=== PATIENT | male | born 1990 ===

== ENCOUNTER 2020-12-30 11:53 | Emergency (ER) | payer SELFPAY ==
[2020-12-30 12:27] VITALS: BP 123/75
[2020-12-30] MEDS ORDERED: IBUPROFEN 800 MG TAB PO ONE (12:42)
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
== END 2020-12-30 14:14 | disposition home or self-care (01) ==
LOC: ED 11:53
DX: S69.91XA Unspecified injury of right wrist, hand and finger(s), initial encounter (principal); S39.92XA Unspecified injury of lower back, initial encounter; Z88.0 Allergy status to penicillin; V89.2XXA Person injured in unspecified motor-vehicle accident, traffic, initial encounter; Y93.89 Activity, other specified; Y92.89 Other specified places as the place of occurrence of the external cause; Y99.8 Other external cause status
CPT/HCPCS: 72070; 72100; 99283

== ENCOUNTER 2021-06-25 13:44 | Emergency (ER) | payer SELFPAY | END 2021-06-25 14:10 | disposition left against medical advice (07) | LOC: ED 13:44 | DX: M54.9 Dorsalgia, unspecified (principal); R07.89 Other chest pain; Z53.21 Procedure and treatment not carried out due to patient leaving prior to being seen by health care provider ==